=== PATIENT | female | born 1995 | race African-American/Black ===

== ENCOUNTER 2019-06-30 20:16 | Emergency (ER) | payer OTHER, SELFPAY ==
[2019-06-30 20:20] VITALS: BP 113/66; PULSE 87; RESP 18; TEMP 37.1; O2SAT 100
[2019-06-30 20:21] VITALS: BP 113/66; PULSE 87; RESP 18; TEMP 36.7; O2SAT 100
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
== END 2019-06-30 20:43 | disposition home or self-care (01) ==
PROVIDERS: Emergency Provider Emergency Medicine; PCP Emergency Medicine
DX: S01.81XA Laceration without foreign body of other part of head, initial encounter (principal); W22.8XXA Striking against or struck by other objects, initial encounter
CPT/HCPCS: 12011; 99282